=== PATIENT | female | born 1940 | race Caucasian/White ===

== ENCOUNTER → 2017-03-18 | Day surgery (SDC) | payer OTHER ==
[~2017-03-18] MED LIST: BUPIVACAINE 0.5% 30 ML SDV ONE; DEPO METHYLPREDNISOLONE 40 MG/ML SDV ONE; IOPAMIDOL (ISOVUE-M 300) 15 ML VIAL ONE; TRIAMCINOLONE ACETONIDE 200 MG/5 ML MDV IM ONE
== END | disposition home or self-care (01) ==
LOC: FIMAGING 13:27
PROVIDERS: ATTEND Radiology Diagnostic Radiology
DX: M54.16 Radiculopathy, lumbar region (principal); M48.56XD Collapsed vertebra, not elsewhere classified, lumbar region, subsequent encounter for fracture with routine healing
CPT/HCPCS: J1030; J3301; Q9967

== ENCOUNTER → 2017-12-30 | Outpatient (CLI) | payer OTHER | LOC: FIMAGING 18:41 | DX: M48.56XA Collapsed vertebra, not elsewhere classified, lumbar region, initial encounter for fracture (principal); M48.061 Spinal stenosis, lumbar region without neurogenic claudication; M51.36 Other intervertebral disc degeneration, lumbar region; M51.26 Other intervertebral disc displacement, lumbar region ==

== ENCOUNTER 2018-01-02 12:09 | Day surgery (SDC) | payer OTHER ==
[2018-01-02] MEDS ORDERED: DEPO METHYLPREDNISOLONE 40 MG/ML SDV ONE (14:14)
[2018-01-02] MEDS ORDERED: IOPAMIDOL (ISOVUE-M 300) 15 ML VIAL ONE (14:14)
[2018-01-02] MEDS ORDERED: BUPIVACAINE 0.5% 30 ML SDV ONE (14:14)
[2018-01-02] MEDS ORDERED: DEPO METHYLPREDNISOLONE 80 MG/ML SDV ONE (14:14)
[2018-01-02] MEDS ORDERED: LIDOCAINE 1% 300 MG/30 ML SDV ONE (14:15)
== END 2018-01-02 13:57 | disposition home or self-care (01) ==
LOC: FIMAGING 12:09
PROVIDERS: ATTEND Radiology Diagnostic Radiology
PROC: 3E0R3BZ Introduction of Anesthetic Agent into Spinal Canal, Percutaneous Approach (ICD-10-PCS; principal; 2018-01-02)
DX: M51.26 Other intervertebral disc displacement, lumbar region (principal)
CPT/HCPCS: J1030; J1040; Q9967